=== PATIENT | male | born 1970 | race Hispanic/Latino ===

== ENCOUNTER 2023-04-21 16:06 | Emergency (ER) | payer BC, OTHER ==
[~2023-04-21] VITALS: Ht 177.8 cm; Wt 90.7 kg
[2023-04-21 16:24] VITALS: BP 142/84; PULSE 84; RESP 14; O2SAT 98
== END 2023-04-21 21:06 | disposition left against medical advice (07) ==
LOC: EDH 16:06
DX: S61.432A Puncture wound without foreign body of left hand, initial encounter (principal); Z53.21 Procedure and treatment not carried out due to patient leaving prior to being seen by health care provider; X58.XXXA Exposure to other specified factors, initial encounter; Y93.89 Activity, other specified; Y92.89 Other specified places as the place of occurrence of the external cause; Y99.8 Other external cause status